=== PATIENT | male | born 1960 | race Caucasian/White ===

== ENCOUNTER → 2023-07-02 | Outpatient (CLI) | payer BC ==
--- NOTE | 2023-07-02 16:19 | P.SLEEP ---
History of Present Illness DATE: 07/02/2023 CONSULTATION/NEW PATIENT EVALUATION HISTORY OF PRESENT ILLNESS/SLEEP-WAKE EVALUATION: 63-year-old gentleman had been evaluated in the sleep center for obstructive sleep apnea hypopnea syndrome. Patient has history of obstructive sleep apnea hypopnea syndrome diagnosed in our institution for 16 years. Patient continued to use his BiPAP equipment every night for the whole night. I checked his BiPAP unit, it's very old. SLEEP SCHEDULE: Usually sleep schedule from 8:30 PM to 5:30 AM on weekdays and from 9:30 PM to 6 AM on weekend. FALLING ASLEEP: No problems with falling asleep. DURING SLEEP: No snoring while patient using BiPAP equipment. Patient still may wake up from sleep up to 5 times with nocturia while using BiPAP. No history of hypnogogical hallucinations, sleep paralysis, or cataplexy. DURING THE DAY/WAKE STATE: Occasional excessive daytime sleepiness. [place] sleepiness scale is 3. Patient may take nap at 1 PM on weekdays. PAST MEDICAL HISTORY: Hypertension, migraines, depression. PAST SURGICAL HISTORY: Surgical treatment for carpal tunnel syndrome on the right side. MEDICATIONS: Chlorthalidone 50 mg once a day, Effexor 150 mg once a day, Imitrex 100 mg, topiramate 100 mg twice a day, metoprolol 25 mg twice a day. SOCIAL HISTORY: Negative for smoking or recent using alcohol. FAMILY HISTORY: Hypertension, fibromyalgia, mental illness. REVIEW OF SYSTEMS: Awakenings from sleep. No fevers. No double vision. No recent chest pain. No shortness of breath. No abdominal pain. No bleeding episodes. No blood in urine. No seizure episodes. PHYSICAL EXAMINATION: GENERAL: A pleasant patient without any distress. VITAL SIGNS: BP 129/84 , HR 79 , RR 16 , weight 233.0 pounds, height 5 foot 7-3/4 inches, body mass index 35.7 . HEENT: PERRLA, EOMI. Evaluation of oropharynx showed tongue protrudes midline, low position of soft palate Mallampati 3, retrognathia 23 millimeters. NECK: Supple. No JVD. Thyroid is not palpable. 19 inches in circumference. LUNGS: Clear to percussion and to auscultation. Good air exchange. No wheezing or rhonchi. HEART: S1, S2 regular. No murmurs, gallops or rubs. ABDOMEN: Soft and nontender. Bowel sounds are present. No organomegaly appreciated. EXTREMITIES: No clubbing or cyanosis. CERTIFIED MEDICAL TRANSCRIPTIONIST: Awake, alert, and oriented x3. Cranial nerves 2 to 7 intact. There is no fasciculation or atrophy noted. No focal deficits observed. ASSESSMENT: 1. Obstructive sleep apnea hypopnea syndrome for about 16 years. Patient c ontinued to use BiPAP equipment every night for the whole night. BiPAP unit is very old. Small oropharyngeal airspace Mallampati 3, retrognathia 23 millimeters. 2. Obesity BMI 35.7. 3. Hypertension. 4. Migraines. 5 history of depression. 6 . Status post surgical treatment of carpal tunnel syndrome on the right side. PLAN: 1. We will get results of previous sleep study. 2. Prescription for new BiPAP equipment. 3. Preferable position during sleep on the side. 4. No driving if patient feels any sleepiness. Patient is aware of civil and criminal liability for unsafe driving. 5. Sleep hygiene with regular sleep time for at least 7.5-8 hours. 6. Watching and losing weight. 7, Follow-up visit in 1-3 months after patient will get new BiPAP equipment to evaluate clinical response on treatment, compliance with treatment and make any necessary adjustments. Thank you very much for referring this patient for consultation. Sincerely, Hema Castano MD, PhD, FAASM. Diplomat of [place] [employer], Sleep Medicine Board by [place] [employer] [place] [employer] Child Watch Attendant of [facility] [place] Past Medical History Past Medical History: Hyperlipidemia, Hypertension, Thyroid Disorder Additional Past Medical History / Comment(s): 10/27/[address] [facility] ER via EMS for loss of consciousness while at the drive thru at [facility]. EMS was summoned and they also noted him to be pale and diaphoretic. Other HX: Pt recently lost 40# thru [facility]. Before he started dieting with them they did a 12 lead EKG and noted bradycardia. PT followed up with his PA and she had him wear a 24 hour holter monitor. It also showed bradycardia with heart rate at 39 for 8 hours. He was in the process of being set up to see camera technician when todays event took place. Pt has hx of HTN and high Lipids but after losing 40 # he has been taken off his B/P med and cholesterol med. He has not been taking his thyroid medicine. History of Any Multi-Drug Resistant Organisms: None Reported Past Surgical History: Tonsillectomy Additional Past Surgical History / Comment(s): 1986 sinus surgery, 1982 vasectomy, colonoscopy at age 51yrs-normal. Past Anesthesia/Blood Transfusion Reactions: No Reported Reaction Past Psychological History: No Psychological Hx Reported Additional Psychological History / Comment(s): Pt lives at home with his . He is independent. He drives a car. Past Alcohol Use History: None Reported Past Drug Use History: None Reported - Past Family History Father Family Medical History: Dementia Additional Family Medical History / Comment(s): Father is 93 yrs old and lives in a chcf. Mother Family Medical History: No Reported History Additional Family Medical History / Comment(s): Mother is 86yrs old and healthy. Medications and Allergies Home Medications Medication Instructions Recorded Confirmed Type Levothyroxine Sodium [Synthroid] 25 mcg PO DAILY 10/27/14 10/27/14 History SUMAtriptan succinate [Imitrex] 100 mg PO DAILY PRN 10/27/14 10/27/14 History Allergies Allergy/AdvReac Type Severity Reaction Status Date / Time atorvastatin calcium AdvReac JOINT PAIN Verified 10/27/14 16:12 [From Lipitor] Sleep Note - Sleep Note Sleep Note: Temperature: Pulse Rate: Respiratory Rate: Blood Pressure: SpO2: Height: Weight: BMI: Neck Circumference:
== END ==
LOC: 3 N SLEEP 15:10
PROVIDERS: ATTEND Internal Medicine
DX: G47.33 Obstructive sleep apnea (adult) (pediatric) (principal); E66.9 Obesity, unspecified; I10 Essential (primary) hypertension; G43.909 Migraine, unspecified, not intractable, without status migrainosus; F32.A Depression, unspecified; M26.19 Other specified anomalies of jaw-cranial base relationship; E78.5 Hyperlipidemia, unspecified; Z98.890 Other specified postprocedural states; Z99.89 Dependence on other enabling machines and devices; Z68.35 Body mass index [BMI] 35.0-35.9, adult; Z79.899 Other long term (current) drug therapy; Z88.8 Allergy status to other drugs, medicaments and biological substances
CPT/HCPCS: 99202

== ENCOUNTER → 2024-01-14 | Outpatient (CLI) | payer BC ==
[2024-01-14 16:01] VITALS: BP 135/82; PULSE 56; RESP 16; TEMP 98.1
--- NOTE | 2024-01-14 16:21 | P.PROGSL ---
Subjective DATE: 01/15/2024 FOLLOW UP VISIT. Patient with obstructive sleep apnea hypopnea syndrome return to sleep center for follow-up visit. Information from previous visit have been reviewed. This is first visit after patient received new BPAP unit. Patient is using PAP equipment every night for the whole night, getting PAP supplies in time. The patient does not have significant problems with the mask, PAP unit and humidification. [place] sleepiness scale is 4. I checked information from PAP unit. BPAP unit pressure maximal inspiratory pressure 16, minimal expiratory pressure 7, pressure support 4, average BiPAP pressure 14.2/10.2 cm H2O. Usage is 100% for more then 4 hours, average 8 hours per night. Leak is 0.6 l/m, which is in perfect range. Apnea Hypopnea Index is 2.9, which is normal. MEDICATIONS have been reviewed, please see below. During physical exam: GENERAL: A pleasant patient without any distress. VITAL SIGNS: Please see below, weight is 228.8 lbs. HEENT: PERRLA, EOMI.low position of soft palate, Mallapati 3 . NECK: Supple. No JVD. LUNGS: Clear to percussion and to auscultation. Good air exchange. No wheezing or rhonchi. HEART: S1, S2 regular. ABDOMEN: Soft and nontender. Slightly obese EXTREMITIES: No clubbing or cyanosis. ANESTHESIOLOGY FACULTY: Awake, alert, and oriented x3. No focal deficit. Impressions: 1. Obstructive sleep apnea-hypopnea syndrome. Patient demonstrated great compliance with treatment, benefiting from treatment. 2. Mild obesity, patient lost 5 pounds comparing with the previous visit. 3. Hypertension. 4. History of depression. 5. History of migraines. 6. Status post surgical treatment for carpal tunnel syndrome on the right side. Plan: 1. Continue using PAP equipment every night for the whole night. 2. Sleep hygiene with regular time in bed for at least 7.5-8 hours 3. PAP unit should stay lower then position of the head. 4. Advised patient to remove all remaining water from humidifier canister daily and make it dry after each usage. Refill canister with fresh distilled water before each usage. 5. Watching weight. 6. Precautions related to driving. No driving if feel any sleepiness. 7. I will maintain prescription for PAP supplies including mask, tube, filters. 8. Follow up visit in 6 months or earlier if patient has any problems. Thank you very much for allowing me to participate in the management of your patient. Hema Castano MD, PhD, FAASM. Diplomat of [place] [employer], Sleep Medicine Board by [place] [employer] Control Panel Tester of [facility] [place] Objective - Vital Signs Vital Signs: Vital Signs Temp 98.1 F 01/14/24 16:00 Pulse 56 L 01/14/24 16:00 Resp 16 01/14/24 16:00 BP 135/82 01/14/24 16:00 Pulse Ox 97 01/14/24 16:00 FiO2 Intake & Output 01/13/24 01/14/24 01/14/24 18:59 06:59 18:59 Weight 103.419 kg Home Medications: Home Medications Medication Instructions Recorded Confirmed Type Levothyroxine Sodium [Synthroid] 25 mcg PO DAILY 10/27/14 01/14/24 History SUMAtriptan succinate [Imitrex] 100 mg PO DAILY PRN 10/27/14 01/14/24 History Furosemide [Lasix] 20 mg PO DAILY 01/14/24 01/14/24 History Galcanezumab-Gnlm [Emgality Pen] 10 mg SQ ONCE 01/14/24 01/14/24 History Magnesium Citrate 125 mg PO DAILY 01/14/24 01/14/24 History Metoprolol Succinate [Metoprolol 25 mg PO DAILY 01/14/24 01/14/24 History Succinate ER] Potassium Chloride ER [K-Dur 20] 01/14/24 History Tirzepatide [Zepbound] 5 mg SQ WEEKLY 01/14/24 01/14/24 History Venlafaxine HCl [Effexor XR] 150 mg PO DAILY 01/14/24 01/14/24 History lisinopriL [Qbrelis] 10 mg PO DAILY 01/14/24 01/14/24 History
== END ==
LOC: 3 N SLEEP 15:34
PROVIDERS: ATTEND Internal Medicine
DX: G47.33 Obstructive sleep apnea (adult) (pediatric) (principal); E66.9 Obesity, unspecified; I10 Essential (primary) hypertension; F32.A Depression, unspecified; Z86.69 Personal history of other diseases of the nervous system and sense organs; Z98.890 Other specified postprocedural states; Z99.89 Dependence on other enabling machines and devices; Z79.899 Other long term (current) drug therapy; Z88.8 Allergy status to other drugs, medicaments and biological substances; Z68.34 Body mass index [BMI] 34.0-34.9, adult
CPT/HCPCS: 99212

== ENCOUNTER → 2024-09-15 | Outpatient (CLI) | payer BC ==
[2024-09-15 16:25] VITALS: BP 149/89; PULSE 65; RESP 18; TEMP 97.8
--- NOTE | 2024-09-15 16:46 | P.PROGSL ---
Subjective DATE: 09/15/2024 FOLLOW UP VISIT. Patient with obstructive sleep apnea hypopnea syndrome return to sleep center for follow-up visit. Information from previous visit have been reviewed. Patient is using PAP equipment every night for the whole night, getting PAP supplies in time. The patient does not have significant problems with the mask, PAP unit and humidification. [place] sleepiness scale is 1, which is perfect. I checked information from PAP unit. BPAP unit pressure maximal inspiratory pressure 16, minimal expiratory pressure 7, pressure support 4, average pressure 15.4/11.4 cm H2O. Usage is 100% for more then 4 hours, average 8.1 hours per night. Leak is perfect 0 l/m. Apnea Hypopnea Index is 0.5, which is normal. MEDICATIONS: Levothyroxine 25 mcg, metoprolol 50 mg twice a day, Xanax 0.25 as needed, venlafaxine 150 mg once a day, furosemide 20 mg once a day, lisinopril 10 mg once a day, cyclobenzaprine 10 mg as needed, sumatriptan 100 mg as needed, amitriptyline 20 milligram once a day. During physical exam: GENERAL: A pleasant patient without any distress. VITAL SIGNS: Please see below, weight is 243 lbs. HEENT: PERRLA, EOMI.low position of soft palate, Mallapati 3. NECK: Supple. No JVD. LUNGS: Clear to percussion and to auscultation. Good air exchange. No wheezing or rhonchi. HEART: S1, S2 regular. ABDOMEN: Soft and nontender.[] EXTREMITIES: No clubbing or cyanosis. MICA MINER BLASTING: Awake, alert, and oriented x3. No focal deficit. Impressions: 1. Obstructive sleep apnea-hypopnea syndrome. Patient demonstrated great compliance with treatment, benefiting from treatment. 2. Obesity, BMI 38.0, patient increased weight on 15 pounds comparing with previous visit. 3. Hypertension. 4. History of depression. 5. Migraines. 6. Status post surgical treatment for carpal tunnel syndrome on the right side. Plan: 1. Continue using PAP equipment every night for the whole night. 2. Sleep hygiene with regular time in bed for at least 7.5-8 hours 3. PAP unit should stay lower then position of the head. 4. Advised patient to remove all remaining water from humidifier canister daily and make it dry after each usage. Refill canister with fresh distilled water before each usage. 5. Watching and losing weight. 6. Precautions related to driving. No driving if feel any sleepiness. 7. I will maintain prescription for PAP supplies including mask, tube, filters. 8. Follow up visit in 8 months or earlier if patient has any problems. Thank you very much for allowing me to participate in the management of your patient. Hema Castano MD, PhD, FAASM. Diplomat of [place] [employer], Sleep Medicine Board by [place] [employer] Field Installation Technician of [facility] [place] Objective - Vital Signs Vital Signs: Vital Signs Temp 97.8 F 09/15/24 16:22 Pulse 65 09/15/24 16:22 Resp 18 09/15/24 16:22 BP 149/89 09/15/24 16:22 Pulse Ox 97 09/15/24 16:22 FiO2 Intake & Output 09/14/24 09/15/24 09/15/24 18:59 06:59 18:59 Weight 110.223 kg Home Medications: Home Medications Medication Instructions Recorded Confirmed Type Levothyroxine Sodium [Synthroid] 25 mcg PO DAILY 10/27/14 01/14/24 History SUMAtriptan succinate [Imitrex] 100 mg PO DAILY PRN 10/27/14 01/14/24 History Furosemide [Lasix] 20 mg PO DAILY 01/14/24 01/14/24 History Galcanezumab-Gnlm [Emgality Pen] 10 mg SQ ONCE 01/14/24 01/14/24 History Magnesium Citrate 125 mg PO DAILY 01/14/24 01/14/24 History Metoprolol Succinate [Metoprolol 25 mg PO DAILY 01/14/24 01/14/24 History Succinate ER] Potassium Chloride ER [K-Dur 20] 01/14/24 History Tirzepatide [Zepbound] 5 mg SQ WEEKLY 01/14/24 01/14/24 History Venlafaxine HCl [Effexor XR] 150 mg PO DAILY 01/14/24 01/14/24 History lisinopriL [Qbrelis] 10 mg PO DAILY 01/14/24 01/14/24 History
== END ==
LOC: 3 N SLEEP 16:15
PROVIDERS: ATTEND Internal Medicine
DX: G47.33 Obstructive sleep apnea (adult) (pediatric) (principal); E66.9 Obesity, unspecified; Z68.38 Body mass index [BMI] 38.0-38.9, adult; I10 Essential (primary) hypertension; Z86.59 Personal history of other mental and behavioral disorders; G43.909 Migraine, unspecified, not intractable, without status migrainosus; Z98.890 Other specified postprocedural states; Z88.8 Allergy status to other drugs, medicaments and biological substances
CPT/HCPCS: 99212